=== PATIENT | female | born 1960 | race Two or more races ===

== ENCOUNTER 2016-03-13 18:48 | Emergency (ER) | payer MEDICAID ==
[2016-03-13] MEDS ORDERED: IV NS 0.9% 1,000 ML ONE (19:28)
[2016-03-13] MEDS ORDERED: IV SET PRIMARY 1 EA INFUS.SET MC ONE (19:28)
[2016-03-13] MEDS ORDERED: IV NS 0.9% 1,000 ML BAG IV ONE (19:30)
[2016-03-13 19:32] LABS: BASOPHILS % (AUTO) 0.5 % (0.0-2.0); DIFF TOTAL % 100 %; EOSINOPHILS # (AUTO) 0.1 /CMM (0.0-0.7); EOSINOPHILS % (AUTO) 1.6 % (0.0-6.0); HEMATOCRIT 41 % (33-45); HEMOGLOBIN 13.4 g/dL (11.5-14.8); LYMPHOCYTES % (AUTO) 27.1 % (20.0-44.0); MEAN CORPUSCULAR HEMOGLOBIN 29 PG (26.0-33.0); MEAN CORPUSCULAR HGB CONC 33 g/dl (31.0-36.0); MEAN CORPUSCULAR VOLUME 88 fL (82-100); MONOCYTES # (AUTO) 0.5 /CMM (0.1-1.30); MONOCYTES % (AUTO) 6.5 % (2.0-12.0); NEUTROPHILS # (AUTO) 4.7 /CMM (1.8-8.9); NEUTROPHILS % (AUTO) 64.3 % (43.0-81.0); PLATELET COUNT (AUTO) 236 /CMM (150-450); RED BLOOD CELL COUNT(AUTO) 4.64 MIL/uL (4.0-5.2); WHITE BLOOD COUNT (AUTO) 7.3 K/uL (4.3-11.0)
[2016-03-13 19:40] LABS: CALCIUM, SERUM 9.2 mg/dL (8.5-10.1); CREATININE 0.8 mg/dL (0.6-1.3); POTASSIUM 4.4 mmol/L (3.5-5.1)
[2016-03-13 20:50] VITALS: BP 133/65
== END 2016-03-13 20:51 | disposition home or self-care (01) ==
LOC: ER 18:50
DX: R56.9 Unspecified convulsions (principal); D43.0 Neoplasm of uncertain behavior of brain, supratentorial
CPT/HCPCS: 36415; 70450; 80048; 85025; 96360; 99285; A4606; J7030; Z7610